=== PATIENT | male | born 1985 | race Caucasian/White ===

== ENCOUNTER 2016-12-05 01:36 | Emergency (ER) | payer MEDICAID ==
[~2016-12-05] VITALS: Ht 172.7 cm; Wt 182.0 kg
[~2016-12-05 01:36] MED LIST: ASPI-515 PO; ATEN100T PO; ATOR20TA PO; HYDR-3240 PO; HYDR25TA6 PO; LISI-170 PO; NITR0.4T8 SL; ZOLP10TA PO
[2016-12-05] MEDS ORDERED: ACETAMINOPHEN 325 MG TABLET ONE (02:51)
[2016-12-05] MEDS ORDERED: HYDROcodone/APAP 7.5-325MG/15ML UDC ONE (02:51)
[2016-12-05] MEDS ORDERED: ACETAMINOPHEN 325 MG TABLET PO ONE (03:00)
[2016-12-05] MEDS ORDERED: HYDROcodone/APAP 7.5-325MG/15ML UDC PO PRN (03:00)
[2016-12-05 03:20] LABS: HEMOGLOBIN 15.7 g/dL (13.7-18.0)
[2016-12-05 03:32] LABS: BLOOD UREA NITROGEN 13 mg/dL (7-18)
[2016-12-05 03:39] LABS: IS PT STATUS REG ER OR PRE ER? YES
[2016-12-05 04:43] VITALS: BP 139/74
[2016-12-05] MEDS ORDERED: HYDROcodone/APAP 10/325 MG TABLET ONE (04:45)
[2016-12-05] MEDS ORDERED: HYDROcodone/APAP 10/325 MG TABLET PO PRN (05:00)
== END 2016-12-05 05:13 | disposition home or self-care (01) ==
LOC: ED 05:10
DX: J20.9 Acute bronchitis, unspecified (principal); F41.1 Generalized anxiety disorder; J45.909 Unspecified asthma, uncomplicated; K21.9 Gastro-esophageal reflux disease without esophagitis; I11.9 Hypertensive heart disease without heart failure; E78.5 Hyperlipidemia, unspecified; I25.2 Old myocardial infarction; F12.10 Cannabis abuse, uncomplicated; Z87.891 Personal history of nicotine dependence
CPT/HCPCS: 36415; 71020; 80048; 82040; 84484; 85025; 93005; 99285

== ENCOUNTER 2016-12-29 11:13 | Emergency (ER) | payer MEDICAID ==
[~2016-12-29] VITALS: Ht 175.3 cm; Wt 180.0 kg
[2016-12-29] MEDS ORDERED: ASPIRIN 81 MG TABLET CHEW PO ONE (12:00)
[2016-12-29] MEDS ORDERED: SODIUM CHLORIDE FLUSH 10ML SYR IVF ONE (12:00)
[2016-12-29 12:04] LABS: HEMOGLOBIN 16.1 g/dL (13.7-18.0)
[2016-12-29] MEDS ORDERED: ASPIRIN 81 MG TABLET CHEW ONE (12:07)
[2016-12-29 12:16] LABS: BLOOD UREA NITROGEN 15 mg/dL (7-18)
[2016-12-29 12:21] LABS: IS PT STATUS REG ER OR PRE ER? YES
[2016-12-29 13:44] LABS: ABG COLLECTION SITE RIGHT RADIAL; COLLATERAL CIRCULATION TESTING NORMAL
[2016-12-29 14:16] VITALS: BP 112/70
== END 2016-12-29 14:22 | disposition home or self-care (01) ==
LOC: ED 14:00
DX: R55 Syncope and collapse (principal); I10 Essential (primary) hypertension; J45.909 Unspecified asthma, uncomplicated; K21.9 Gastro-esophageal reflux disease without esophagitis; F17.200 Nicotine dependence, unspecified, uncomplicated; F12.90 Cannabis use, unspecified, uncomplicated
CPT/HCPCS: 36415; 36600; 71010; 80048; 82040; 82803; 83880; 84484; 85025; 85610; 93005

== ENCOUNTER 2017-01-17 00:41 | Emergency (ER) | payer MEDICAID ==
[~2017-01-17] VITALS: Ht 175.3 cm; Wt 180.0 kg
[2017-01-17] MEDS ORDERED: HYDROcodone/APAP 5/325 TABLET ONE (01:26)
[2017-01-17] MEDS ORDERED: HYDROcodone/APAP 5/325 TABLET PO ONE (01:30)
[2017-01-17] MEDS ORDERED: DIAZEPAM 5 MG TABLET ONE (01:59)
[2017-01-17] MEDS ORDERED: DIAZEPAM 5 MG TABLET PO ONE (02:00)
[2017-01-17 02:55] VITALS: BP 151/84
== END 2017-01-17 02:59 | disposition home or self-care (01) ==
LOC: ED 01:08
DX: S39.012A Strain of muscle, fascia and tendon of lower back, initial encounter (principal); K21.9 Gastro-esophageal reflux disease without esophagitis; J45.909 Unspecified asthma, uncomplicated; Z90.49 Acquired absence of other specified parts of digestive tract; X58.XXXA Exposure to other specified factors, initial encounter; Y93.89 Activity, other specified; Y92.89 Other specified places as the place of occurrence of the external cause; Y99.8 Other external cause status
CPT/HCPCS: 72110; 99284; J7512

== ENCOUNTER 2017-04-14 16:20 | Emergency (ER) | payer MEDICAID ==
[~2017-04-14] VITALS: Ht 175.3 cm; Wt 185.0 kg
[2017-04-14] MEDS ORDERED: SODIUM CHLORIDE 0.9% 1,000 ML IV ONE (16:44)
[2017-04-14] MEDS ORDERED: ONDANSETRON 2MG/ML, 2ML IVPush ONE (17:00)
[2017-04-14] MEDS ORDERED: MORPHINE SULFATE 4 MG/ML, 1ML IVPush PRN (17:00)
[2017-04-14] MEDS ORDERED: SODIUM CHLORIDE FLUSH 10ML SYR IVF ONE (17:00)
[2017-04-14 17:12] LABS: ASPARTATE AMINO TRANSFERASE 42 U/L (15-37); BLOOD UREA NITROGEN 13 mg/dL (7-18)
[2017-04-14] MEDS ORDERED: MORPHINE SULFATE 4 MG/ML, 1ML ONE (17:52)
[2017-04-14] MEDS ORDERED: ONDANSETRON 2MG/ML, 2ML ONE (17:52)
[2017-04-14 19:08] VITALS: BP 148/82
== END 2017-04-14 17:27 | disposition home or self-care (01) ==
LOC: ED 16:48
DX: N45.1 Epididymitis (principal); I10 Essential (primary) hypertension; E78.5 Hyperlipidemia, unspecified; I25.2 Old myocardial infarction; J45.909 Unspecified asthma, uncomplicated; K21.9 Gastro-esophageal reflux disease without esophagitis; Z90.49 Acquired absence of other specified parts of digestive tract
CPT/HCPCS: 36415; 74000; 74176; 76870; 80053; 81003; 83690; 85025; 96361; 96374; 96375; 99285; J2405; J7030

== ENCOUNTER 2018-12-28 19:47 | Emergency (ER) | payer MEDICAID ==
[~2018-12-28] VITALS: Ht 177.8 cm; Wt 200.0 kg
[~2018-12-28 19:47] MED LIST changes: +NITR0.4T28 SL; -NITR0.4T8 SL
--- NOTE | 2018-12-28 20:26 | NUR ---
"IM HAVING AN EXTRADONARY AMOUNT OF CP." L AND R CP IN TRIAGE. "I FEEL LIKE IM DROWNING" DENIES HX OF CHF OR COPD. STATES SOB AND N/V. HX OF MULTIPLE AK'S. monitors applied, siderails up x, call light within reach
[2018-12-28] MEDS ORDERED: ASPIRIN 81 MG TABLET CHEW ONE (20:27)
[2018-12-28] MEDS ORDERED: ASPIRIN 81 MG TABLET CHEW PO ONE (20:30)
--- NOTE | 2018-12-28 20:32 | NUR ---
pt to xray
[2018-12-28] MEDS ORDERED: LISI-170 PO (20:53)
[2018-12-28] MEDS ORDERED: FURO-93 PO (20:57)
[2018-12-28] MEDS ORDERED: METF500T17 PO (20:57)
[2018-12-28] MEDS ORDERED: AMLO2.5T5 PO (20:57)
[2018-12-28] MEDS ORDERED: CARV3.1212 PO (20:57)
[2018-12-28] MEDS ORDERED: HYDR-3341 PO (20:57)
[2018-12-28 21:03] LABS: ALBUMIN 3.9 g/dL (3.4-5.0); ANION GAP 9 mmol/L (5-15); BASOPHILS # (AUTO) 0.03 x10^3/uL (0-0.1); BASOPHILS % (AUTO) 1 % (0-1); CALCIUM 9.3 mg/dL (8.5-10.1); CHLORIDE 107 mmol/L (98-107); EOSINOPHILS # (AUTO) 0.02 x10^3/uL (0-0.4); EOSINOPHILS % (AUTO) 0 % (1-7); LYMPHOCYTES # (AUTO) 1.95 x10^3/uL (1-3.4); LYMPHOCYTES % (AUTO) 36 % (22-44); MD NO; MEAN CORPUSCULAR HEMOGLOBIN 29.8 pg (27.5-34.5); MEAN CORPUSCULAR VOLUME 87.7 fL (81-97); MEAN PLATELET VOLUME 8.7 fL (7.4-10.4); MONOCYTES # (AUTO) 0.46 x10^3/uL (0.2-0.8); MONOCYTES % (AUTO) 9 % (2-9); NEUTROPHILS # (AUTO) 2.99 x10^3/uL (1.8-6.8); NEUTROPHILS % (AUTO) 55 % (42-75); PLATELET COUNT 302 x10^3/uL (130-400); RED CELL DISTRIBUTION WIDTH 14.3 % (9.4-14.8)
[2018-12-28 21:07] LABS: TROPONIN I 0.018 ng/mL (0.000-0.045)
[2018-12-28 21:28] VITALS: BP 162/89
== END 2018-12-28 21:42 | disposition home or self-care (01) ==
LOC: ED 21:00
DX: R07.2 Precordial pain (principal); J20.9 Acute bronchitis, unspecified; K21.9 Gastro-esophageal reflux disease without esophagitis; I25.2 Old myocardial infarction; E78.5 Hyperlipidemia, unspecified; I10 Essential (primary) hypertension; J45.909 Unspecified asthma, uncomplicated; Z88.5 Allergy status to narcotic agent; Z87.891 Personal history of nicotine dependence
CPT/HCPCS: 36415; 71046; 80048; 82040; 83880; 84484; 85025; 93005; 99284